=== PATIENT | female | born 2000 | race Asian ===

== ENCOUNTER 2022-07-06 20:19 | Emergency (ER) | payer OTHER ==
[~2022-07-06] VITALS: Ht 160 cm; Wt 54.5 kg
[2022-07-06 22:09] LABS: BASOPHILS % (AUTO) 0.8 % (0.0-2.0); EOSINOPHILS % (AUTO) 2.3 % (1.0-6.0); HEMATOCRIT 41.9 % (36-46); HEMOGLOBIN 13.9 g/dL (12.0-16.0); LYMPHOCYTES # (AUTO) 3.1 K/uL (1.0-4.8); LYMPHOCYTES % (AUTO) 29.6 % (22.0-44.0); MEAN CORPUSCULAR HEMOGLOBIN 29.2 pg (26.0-34.0); MEAN CORPUSCULAR HGB CONC 33.1 G/dL (31.0-37.0); MEAN CORPUSCULAR VOLUME 88 fL (80-100); MONOCYTES # (AUTO) 0.8 K/uL (0.1-1.0); MONOCYTES % (AUTO) 7.7 % (2.0-9.0); NEUTROPHILS # (AUTO) 6.3 K/uL (1.8-7.7); NEUTROPHILS % (AUTO) 59.6 % (40.0-70.0); PLATELET COUNT (AUTO) 283 K/uL (150-450); RED BLOOD CELL COUNT(AUTO) 4.74 MIL/uL (4.00-5.20); RED CELL DISTRIBUTION WIDTH 13.8 % (11.5-14.5)
[2022-07-06 22:16] LABS: ANION GAP 8 mmol/L (8-16); CALCIUM, TOTAL 9.7 mg/dL (8.8-10.5); CARBON DIOXIDE 26 mmol/L (22-29); CHLORIDE 102 mmol/L (98-107); CREATININE 0.79 mg/dL (0.60-1.30); GLUCOSE,RANDOM 112 mg/dL (70-110); SODIUM SERUM 136 mmol/L (136-145); UREA NITROGEN, BLOOD 14 mg/dL (7-18)
[2022-07-06 22:17] LABS: GLOMERULAR FILTR. RATE CALC > 60 mL/min (>60)
[2022-07-06 22:21] LABS: COVID AG,FIA SOURCE NASAL SWAB
[2022-07-06 22:21] LABS: PROTHROMBIN TIME 10.7 SEC (9.4-11.6)
[2022-07-06 22:22] LABS: ALBUMIN 3.8 g/dL (3.4-5.0); ALKALINE PHOSPHATASE 52 U/L (46-116); ASPARTATE AMINOTRANSFERASE 20 U/L (15-37); BILIRUBIN,TOTAL 0.2 mg/dL (0.1-1.0); LIPASE 114 U/L (73-393); TOTAL PROTEIN, SERUM 7.6 g/dL (6.4-8.2)
[2022-07-06 22:30] LABS: ALANINE AMINOTRANSFERASE 29 U/L (12-78)
[2022-07-06 22:43] LABS: INFLUENZA TYPE A NEGATIVE FOR TYPE A (NEGATIVE); INFLUENZA TYPE B NEGATIVE FOR TYPE B (NEGATIVE)
[2022-07-06 23:02] LABS: APPEARANCE,URINE TURBID (CLEAR); BILIRUBIN,URINE NEGATIVE (NEGATIVE); GLUCOSE, URINE (UA) NEGATIVE (NEGATIVE); KETONES,URINE NEGATIVE (NEGATIVE); LEUKOCYTE ESTERASE ,URINE LARGE (NEGATIVE); NITRATE,URINE NEGATIVE (NEGATIVE); OCCULT BLOOD,URINE NEGATIVE (NEGATIVE); PH,URINE 7.5 (5.0-8.0); PROTEIN,URINE TRACE mg/dL (NEGATIVE); SPECIFIC GRAVITIY, URINE 1.023 (1.003-1.030); UROBILINOGEN,URINE <=1.0 mg/dL (<=1.0)
[2022-07-06 23:07] LABS: BACTERIA,URINE Moderate /HPF (None Seen); RBC,URINE 0-2 /HPF (0-2); SQUAMOUS EPITHELIAL CELL,UR Many /LPF (None Seen)
[2022-07-06] MEDS ORDERED: SODIUM CHLORIDE 0.9% 100 ML ONE (23:11)
[2022-07-06] MEDS ORDERED: IOHEXOL 350 MG/ML 100 ML VIAL ONE (23:11)
[2022-07-07] MEDS ORDERED: KETOROLAC TROMETHAMINE 30 MG/ML VIAL IVP ONE (00:15)
[2022-07-07] MEDS ORDERED: CefTRIAXone 1 GM/DEXTROSE 50 ML IV ONE (00:15)
[2022-07-07 00:31] LABS: GLUCOMETER DEV NAME(LOC) PVLAB.35; GLUCOSE,POINT OF CARE 94 MG/DL (70-110)
[2022-07-07] MEDS ORDERED: CEPH-558 PO (00:45)
[2022-07-07] MEDS ORDERED: POLY17PO PO (00:45)
[2022-07-07 01:12] VITALS: BP 95/65
== END 2022-07-07 01:17 | disposition home or self-care (01) ==
LOC: EMS 20:19
DX: N39.0 Urinary tract infection, site not specified (principal); K59.00 Constipation, unspecified; J45.909 Unspecified asthma, uncomplicated; Z20.822 Contact with and (suspected) exposure to COVID-19; Z90.49 Acquired absence of other specified parts of digestive tract
CPT/HCPCS: 99285; 74177; 96365; 96375; 87426; 80053; 81001; 82962; 83690; 84703; 85025; 85610; 85730; 87804; 36415; 87086; 87186; 93005; Q9967; J7050; J0696; J1885